=== PATIENT | male | born 1990 | race Caucasian/White ===

== ENCOUNTER 2017-10-19 19:27 | Emergency (ER) | payer OTHER ==
[2017-10-19 19:32] VITALS: PULSE 80; RESP 16; TEMP 98.1
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
[2017-10-19] MEDS ORDERED: LIDOCAINE 5% 1 EA PATCH TD ONE ×2 (21:17→21:18)
[2017-10-19 21:21] VITALS: BP 143/79; O2SAT 97
[2017-10-20] MEDS ORDERED: PATCH REMOVAL 1 EA PATCH TD SCH (21:00)
== END 2017-10-19 21:43 | disposition home or self-care (01) ==
DX: S39.92XA Unspecified injury of lower back, initial encounter (principal); V49.40XA Driver injured in collision with unspecified motor vehicles in traffic accident, initial encounter; Y92.410 Unspecified street and highway as the place of occurrence of the external cause; Y99.8 Other external cause status; Y93.89 Activity, other specified